=== PATIENT | female | born 1960 | race Caucasian/White ===

== ENCOUNTER → 2020-09-07 13:09 | Outpatient (CLI) | payer BC, SELFPAY ==
--- NOTE | 2020-09-07 13:12 | DI.MRI.S_ITS ---
PROCEDURE: MR LUMBAR SPINE WO CON INDICATIONS: PROGRESSIVE BACK PAIN TECHNIQUE: Noncontrast sagittal T1 spin echo and T2 fast echo, sagittal STIR, axial T1 and T2 fast spin echo through the lumbar spine. In cases with scoliosis, additional coronal T2 fast spin echo may be performed. COMPARISON: [facility], RG, XR L-SPINE 2-3V, 05/17/2020, 16:17. FINDINGS: Image quality: Excellent. Alignment and Curvature: Mild levoconvex scoliotic curvature is noted. There is minimal retrolisthesis seen at L2-L3 and L3-L4. Bone Marrow: Marrow is of normal overall signal. Scattered foci are seen, which are hyperintense on T1-weighted and T2-weighted imaging, which are most consistent with benign vertebral body hemangiomas. No acute vertebral body compression fractures. Spinal Cord: Conus medullaris terminates at the L1 level. Visualized cord demonstrates normal signal and size. Paraspinous Soft Tissues: No paravertebral masses. T12-L1: Mild loss of disc height is seen. Loss of disc signal is seen. Partially bridging endplate osteophytes are seen. No significant neural foraminal or central canal narrowing can be seen. L1-L2: The disc height is well-preserved. Loss of disc signal is seen at this level. No significant neural foraminal or central canal narrowing can be seen. L2-L3: [id number]-[id number] loss of disc height and disc signal can be seen on the right side. Mild generalized disc bulge is seen. No significant neural foraminal narrowing can be seen. Mild to moderate central canal narrowing is seen. L3-L4: Mild loss of disc height is seen. Loss of disc signal is seen. Reactive marrow endplate changes are seen, which demonstrate mixed T1 weighted and T2-weighted signal, and are attributed to a combination of edema and fatty metaplasia (Modic type I and Modic type II changes). Moderate disc bulge is seen, which is eccentric to the left. Moderate facet joint hypertrophy is seen. Fluid is seen within the facet joints themselves. There is mild left-sided and moderate right-sided neural foraminal narrowing seen. Moderate central canal narrowing is seen. L4-L5: The disc height is well-preserved. Loss of disc signal is seen at this level. Mild generalized disc bulge is seen. At least moderate facet hypertrophy is seen. Mild bilateral neural foraminal narrowing is seen. No significant central canal narrowing is seen. L5-S1: The disc height is well-preserved. Loss of disc signal is seen at this level. Mild generalized disc bulge is seen. Moderate facet joint hypertrophy is seen. There is mild left-sided and no significant right-sided neural foraminal narrowing seen. The central canal is widely patent. IMPRESSION: Levoconvex scoliotic curvature and multiple levels of degenerative change are seen. Dictated by: Brian Felder M.D. on 09/07/2020 at 14:00 Approved by: Brian Felder M.D. on 09/07/2020 at 14:04
== END ==
PROVIDERS: PCP Family Medicine; Referring Provider Physical Medicine & Rehabilitation; Visit Provider Physical Medicine & Rehabilitation
DX: M47.816 Spondylosis without myelopathy or radiculopathy, lumbar region (principal); M47.817 Spondylosis without myelopathy or radiculopathy, lumbosacral region; M41.20 Other idiopathic scoliosis, site unspecified
CPT/HCPCS: 72148

== ENCOUNTER → 2020-09-19 13:48 | Outpatient (CLI) | payer BC, SELFPAY ==
[2020-09-19 16:12] LABS: COVID19 -Nasal RAPID Negative (Negative)
== END ==
PROVIDERS: PCP Family Medicine; Visit Provider Physician Assistant
DX: Z01.812 Encounter for preprocedural laboratory examination (principal); Z20.822 Contact with and (suspected) exposure to COVID-19
CPT/HCPCS: 87635

== ENCOUNTER 2020-09-20 15:20 | Outpatient (CLI) | payer BC, SELFPAY ==
[2020-09-20] VITALS (10 sets, daily range): BP systolic 128–153; BP diastolic 64–98; PULSE 77–95; RESP 15–19; TEMP 35.9; O2SAT 95–100
--- NOTE | 2020-09-20 15:23 | DI.RAD.S_ITS ---
PROCEDURE: PAIN L/SI FACET INJ/BLK 1STL INDICATIONS: SPONDYLOSIS COMPARISON: None. FINDINGS: Fluoroscopic spot filming was performed to verify placement of spinal needles at the right L2-3, L3-4, L4-5 facet level(s), as labeled on the films. Appropriate location(s) of the needle tip(s) was confirmed by injection of iodinated contrast. IMPRESSION: Fluoroscopic guidance Dictated by: Kelvin Clayton M.D. on 09/20/2020 at 17:49 Approved by: Kelvin Clayton M.D. on 09/20/2020 at 17:49
[2020-09-20] MEDS: fentaNYL 100 MCG/2 ML INJ 50 MCG IV (16:09)
[2020-09-20] MEDS: MIDAZOLAM 5 MG/5 ML VIAL IV (16:09)
[2020-09-20] MEDS: IOPAMIDOL 15 ML VIAL 3 ML INJ (16:09)
[2020-09-20] MEDS: BETAMETHASONE 30 MG/5 ML MDV 12 MG INJ (16:10)
[2020-09-20] MEDS: LIDOCAINE 1% 20 ML 10 ML INJ (16:10)
[2020-09-20] MEDS: BUPIVACAINE 0.5% (PF) VIAL 5 ML INJ (16:10)
--- NOTE | 2020-09-20 16:22 | P.PCN_ITS ---
Date/Time/Diagnoses Date of procedure: 09/20/20 Time of procedure: 16:22 Pre-procedure diagnosis: 1. FACET ARTHROPATHY, 2. AXIAL LBP, 3. MULTILEVEL DDD Post-procedure diagnosis: same Procedure Notes Procedure: 1. FLUOROSCOPICALLY GUIDED CONTRAST CONTROLLED FACET JOINT INJECTIONS RIGHT L2/3, L3/4, L4/5 Indications: Mahnaz is referred by Dr. Herrera for treatment of Axial LBP Physician: Jordy Carson Total Fluoroscopy time (seconds): 9 Total sedation minutes: 13 Complications: none Procedure in detail & Post-procedure care: FINDINGS Multilevel Facet Arthropathy with Clinically significant axial LBP DESCRIPTION OF PROCEDURE Fluoroscopically guided, contrast-controlled right L2/3, L3/4, L4/5 facet joint injections. Following review of allergy and review of potential side effects and complications, including, but not necessarily limited to, infection, allergic reaction, local tissue breakdown, stroke, temporary or permanent nerve injury, paralysis, and possible , the patient indicated that the patient understood and agreed to proceed. An informed consent document was signed by the patient, witnessed by a nurse, and placed in the patient's chart. Additionally, other treatment options including medications, modalities, and physical therapy were reviewed with the patient. After review of previous anaesthesic history and IV conscious sedation the pat ient was deemed safe to proceed with today?s procedure with IV conscious sedation as ASA class II designation. Safety time-out was performed to confirm patient ID, procedure to be performed and site of procedure. IV sedation was accomplished with a combination of 3mg of Versed and 50mcg of Fentanyl administered by the RN after DO order, titrated to patient comfort during the course of the procedure while the patient remained responsive to all verbal commands. In the prone position, following sterile prep and drape of the lumbar region, the posterior aspect of the right L2/3, L3/4, L4/5 facet joints were identified fluoroscopically. The skin was anesthetized via a 25-gauge 1.5-inch needle with 1% lidocaine solution into the corresponding facet joints. At this point, a 22- gauge 3.5-inch spinal needle was atraumatically introduced and advanced under fluoroscopic guidance into the corresponding facet joints. Following negative aspiration, injections of approximately 0.2-cc of Isovue 200 confirmed interarticular placement without vascular uptake. Radiological data, including multiple fluoroscopic views of the lumbosacral spine, reveal a spinal needle at the right L2/3, L3/4, L4/5 facet joints. Subsequent views show flow of contrast material both superiorly and inferiorly within the joint space without vascular or intrathecal uptake. At this point, a total of 0.5cc including a mixture of 0.25cc Marcaine and 0.25cc betamethasone was injected without complication into each of the corresponding facet joints. The patient tolerated the procedure well without signs or symptoms of complications prior to transfer to the recovery area for further monitoring. The patient was then transferred to the recovery area where they were observed for an appropriate period of time after the injection. The patient reported a VAS score of 7 prior to the procedure and a post-procedure VAS of 0. POST OP INSTRUCTIONS The patient was provided a Pain Log to continue to record their response to the target-specific procedure prior to follow-up visit with their referring physician. Additionally, specific post-injection care instructions and a contact number to our office were provided if concerns arise regarding possible complications associated with the procedure are suspected.
== END 2020-09-20 16:47 | disposition home or self-care (01) ==
LOC: RAD 15:22
PROVIDERS: PCP Family Medicine; Referring Provider Physical Medicine & Rehabilitation; Visit Provider Physical Medicine & Rehabilitation
DX: M47.816 Spondylosis without myelopathy or radiculopathy, lumbar region (principal); M51.36 Other intervertebral disc degeneration, lumbar region; M54.5 Low back pain
CPT/HCPCS: 64493; 64494; 64495; 99152; J0702; J2250; J3010

== ENCOUNTER → 2020-11-15 08:26 | Outpatient (CLI) | payer BC, SELFPAY ==
[2020-11-15 12:37] LABS: COVID19 -Nasal RAPID Negative (Negative)
== END ==
PROVIDERS: PCP Family Medicine; Visit Provider Physical Medicine & Rehabilitation
DX: Z20.822 Contact with and (suspected) exposure to COVID-19 (principal)
CPT/HCPCS: 87635; C9803

== ENCOUNTER 2020-11-17 08:56 | Outpatient (CLI) | payer BC, SELFPAY ==
[2020-11-17] VITALS (9 sets, daily range): BP systolic 105–146; BP diastolic 66–86; PULSE 64–82; RESP 8–18; TEMP 36.3; O2SAT 93–100
--- NOTE | 2020-11-17 08:57 | DI.RAD.S_ITS ---
PROCEDURE: PAIN L/SI FACET INJ/BLK 1STL INDICATIONS: Right L2, L3, L4 and L5 MBB COMPARISON: [facility], MR, MR LUMBAR SPINE WO CON, 09/07/2020, 13:51. [facility], RG, XR L-SPINE 2-3V, 05/17/2020, 16:17. FINDINGS: Fluoroscopic spot filming was performed to verify placement of spinal needles at the L2, L3, L4 and L5 level(s), as labeled on the films. Appropriate location(s) of the needle tip(s) was confirmed by injection of iodinated contrast. IMPRESSION: Fluoroscopy for pain management. Dictated by: Nathen Miller M.D. on 11/17/2020 at 9:59 Approved by: Nathen Miller M.D. on 11/17/2020 at 9:59
[2020-11-17] MEDS: fentaNYL 100 MCG/2 ML INJ 50 MCG IV (09:30)
[2020-11-17] MEDS: MIDAZOLAM 5 MG/5 ML VIAL IV (09:36)
[2020-11-17] MEDS: IOPAMIDOL 15 ML VIAL 3 ML INJ (09:37)
[2020-11-17] MEDS: LIDOCAINE 1% 20 ML 10 ML INJ (09:37)
[2020-11-17] MEDS: BUPIVACAINE 0.5% (PF) VIAL 5 ML INJ (09:37)
--- NOTE | 2020-11-17 09:48 | P.PCN_ITS ---
Date/Time/Diagnoses Date of procedure: 11/17/20 Time of procedure: 09:48 Pre-procedure diagnosis: 1. FACET ARTHROPATHY Post-procedure diagnosis: same Procedure Notes Procedure: 1. Right L2, L3, L4 and L5 MB BLOCKS Indications: Mahnaz is referred by Dr. Herrera for treatment of Right Axial LBP. Physician: Jordy Carson Total Fluoroscopy time (seconds): 7 Total sedation minutes: 14 Complications: none Procedure in detail & Post-procedure care: DESCRIPTION OF PROCEDURE Fluoroscopically guided, contrast-controlled right L2, L3, L4 and L5 medial branch blocks with 0.5cc of 0.5% Marcaine. Following review of allergy and review of potential side effects and complications, including, but not necessarily limited to, infection, allergic reaction, local tissue breakdown, nerve injury, paralysis, stroke and possible , the patient indicated that the patient understood and agreed to proceed. An informed consent document was signed by the patient, witnessed by a nurse, and placed in the patient's chart. After review of previous anaesthesic history and IV conscious sedation the patient was deemed safe to proceed with today?s procedure with IV conscious sedation as ASA class II designation. Safety time-out was performed to confirm patient ID, procedure to be performed and site of procedure. IV sedation was accomplished with a combination of 4mg of Versed and 50mcg of Fentanyl was administered by the RN after DO order, titrated to patient comfort during the course of the procedure while the patient remained responsive to all verbal commands In the prone position, following sterile prep and drape of the lumbar region, the right L2, L3, L4 and L5 anatomical location of the medial branch of the dorsal ramus was identified fluoroscopically. Subsequently an anesthetic skin wheal using 1% lidocaine solution was initiated at each of the anatomical spots. Subsequently then a 22-gauge 3.5-inch spinal needle was atraumatically introduced and advanced under fluoroscopic guidance at each of the corresponding sites at the right L2, L3, L4 and L5 MB. After negative aspiration, 0.2 cc of Isovue 200 was injected, confirming placement without vascular or intrathecal uptake. Subsequently then 0.5cc of 0.5% Marcaine solution was injected at each of the corresponding sites at the right L2, L3, L4 and L5 medial branch locations. The patient tolerated the procedure well without signs or symptoms of complications. The procedure tolerated the procedure well without signs or symptoms of complications prior to transfer to the recovery area continued monitoring without incident. Post-procedure, the patient was monitored initiating provocative activities to measure the amount of relief from block of the facetogenic pain. The patient reported a VAS of 7 prior to the procedure and a post-procedure VAS of 1. It has been a pleasure to assist in the diagnostic and therapeutic care of your patient. POST OP INSTRUCTIONS The patient was provided with a Pain Log to complete over the next several hours and subsequent days prior to the patient's follow up with the ordering physician. If the patient has printed circuit board preassembler relief to the solution applied, then they may be a candidate for medial branch rhizotomy. The patient is aware, was provided, once again, with a Pain Log and will follow up with the referring physician for review and clinical correlation.
== END 2020-11-17 10:10 | disposition home or self-care (01) ==
LOC: RAD 08:57
PROVIDERS: PCP Family Medicine; Referring Provider Physical Medicine & Rehabilitation; Visit Provider Physical Medicine & Rehabilitation
DX: M47.816 Spondylosis without myelopathy or radiculopathy, lumbar region (principal); M54.5 Low back pain
CPT/HCPCS: 64493; 64494; 64495; 72020; 99151; 99152; J2250; J3010

== ENCOUNTER → 2021-01-10 12:37 | Outpatient (CLI) | payer BC, SELFPAY ==
[2021-01-10 15:19] LABS: COVID19 -Nasal RAPID Negative (Negative)
== END ==
PROVIDERS: PCP Family Medicine; Visit Provider Physical Medicine & Rehabilitation
DX: Z20.822 Contact with and (suspected) exposure to COVID-19 (principal)
CPT/HCPCS: 87635; C9803

== ENCOUNTER 2021-01-12 09:25 | Outpatient (CLI) | payer BC, SELFPAY ==
[2021-01-12] VITALS (8 sets, daily range): BP systolic 111–151; BP diastolic 63–100; PULSE 62–79; RESP 10–18; TEMP 36.9; O2SAT 96–100
--- NOTE | 2021-01-12 10:42 | DI.RAD.S_ITS ---
PROCEDURE: PAIN L INTERLAMINAR/CAUDAL INJ INDICATIONS: SPONDYLOSIS COMPARISON: [facility], XA, PAIN L/SI FACET INJ/BLK 1STL, 09/20/2020, 16:09. [facility], XA, PAIN L/SI FACET INJ/BLK 1STL, 11/17/2020, 9:37. FINDINGS: Fluoroscopic spot filming was performed to verify placement of a spinal needle at the L3-L4 level, as labeled on the films. Appropriate location of the needle tip was confirmed by injection of iodinated contrast. IMPRESSION: Intraprocedural examination within normal limits. Dictated by: Brian Felder M.D. on 01/12/2021 at 12:33 Approved by: Brian Felder M.D. on 01/12/2021 at 12:33
[2021-01-12] MEDS: fentaNYL 100 MCG/2 ML INJ 50 MCG IV (11:25)
[2021-01-12] MEDS: MIDAZOLAM 5 MG/5 ML VIAL IV (11:25)
[2021-01-12] MEDS: DEXAMETHASONE 10 MG/ML VIAL 20 MG INJ (11:31)
[2021-01-12] MEDS: IOPAMIDOL 15 ML VIAL 3 ML INJ (11:32)
[2021-01-12] MEDS: BUPIVACAINE 0.25% (PF) VIAL 2 ML INJ (11:32)
[2021-01-12] MEDS: BETAMETHASONE 30 MG/5 ML MDV 12 MG INJ (11:32)
--- NOTE | 2021-01-12 11:39 | P.PCN_ITS ---
Date/Time/Diagnoses Date of procedure: 01/12/21 Time of procedure: 11:39 Pre-procedure diagnosis: 1. HNP WITH RADICULAR FEATURES, 2. MULTILEVEL CENTRAL STENOSIS, Post-procedure diagnosis: same Procedure Notes Procedure: 1. FLUOROSCOPICALLY GUIDED CONTRAST CONTROLLED INTERLAMINAR EPIDURAL STEROID INJECTION - L3/4 Indications: Mahnaz is referred by Dr. Herrera for treatment of Bilateral Foraminal Stenosis L>R LE symptoms. Physician: Jordy Carson Total Fluoroscopy time (seconds): 10 Total sedation minutes: 10 Complications: none Procedure in detail & Post-procedure care: FINDINGS Multilevel Central Spinal Stenosis with Nerve Root Compression DESCRIPTION OF PROCEDURE Fluoroscopically guided, contrast-controlled L3/4 translaminar epidural steroid injection. Following review of allergy and review of potential side effects and complications, including, but not necessarily limited to, infection, allergic reaction, local tissue breakdown, temporary as well as permanent nerve injury, paralysis, stroke and possible , the patient indicated that the patient understood and agreed to proceed. An informed consent document was signed by the patient, witnessed by a nurse, and placed in the patient's chart. Additionally, other treatment options including modalities, medications, and physical therapy were reviewed with the patient. After review of previous anaesthesic history and IV conscious sedation the patient was deemed safe to proceed with today?s procedure with IV conscious sedation as ASA class II designation. Safety time-out was performed to confirm p atient ID, procedure to be performed and site of procedure. IV sedation was accomplished with a combination of 4mg of Versed and 50mcg of Fentanyl was administered by the RN after DO order, titrated to patient comfort during the course of the procedure while the patient remained responsive to all verbal commands. In the prone position, following sterile prep and drape of the lumbar region, the L3/4 translaminar space was identified fluoroscopically. The skin was anesthetized via a 25-gauge, 1.5-inch needle with 1% lidocaine solution. At this point, a 22-gauge short bevel spinal needle was atraumatically introduced and advanced under fluoroscopic guidance into the region of the L3/4 translaminar space. Depth was confirmed on lateral view. Radiological data, including multiple fluoroscopic views of the lumbar spine, reveal a spinal needle at the L3/4 translaminar space. Lateral views then show placement of the needle in the epidural space. Subsequent views show contrast material flowing superiorly and inferiorly in the epidural space. No vascular or intrathecal uptake is observed. At this point, using loss of resistance technique with saline and air, the epidural space was entered. This was confirmed following negative aspiration with injection of approximately 1.5 cc of Isovue 200, showing excellent epidural flow without vascular or intrathecal uptake. At this point, 1cc of 1% lidocaine solution combined with 3cc or 20mg of dexamethasone and 12mg of betamethasone was injected without incident. The patient tolerated the procedure well without signs or symptoms of complications prior to transfer to the recovery area continued monitoring without incident. The patient was then transferred to the recovery area where they were observed for an appropriate period of time after the injection. The patient reported a VAS score of 6 prior to the procedure and a post- procedure VAS of 0. POST OP INSTRUCTIONS The patient was provided a Pain Log to continue to record their response to the target-specific procedure prior to follow-up visit with their referring physician. Additionally, specific post-injection care instructions and a contact number to our office were provided if concerns arise regarding possible complications associated with the procedure are suspected.
== END 2021-01-12 12:00 | disposition home or self-care (01) ==
LOC: RAD 09:27
PROVIDERS: PCP Family Medicine; Referring Provider Physical Medicine & Rehabilitation; Visit Provider Physical Medicine & Rehabilitation
DX: M51.16 Intervertebral disc disorders with radiculopathy, lumbar region (principal); M48.061 Spinal stenosis, lumbar region without neurogenic claudication
CPT/HCPCS: 62323; 99152; J0702; J1100; J2250; J3010

== ENCOUNTER → 2021-02-07 14:23 | Outpatient (CLI) | payer BC, SELFPAY ==
[2021-02-07 14:52] LABS: COVID19 -Nasal RAPID Negative (Negative)
== END ==
PROVIDERS: PCP Family Medicine; Referring Provider Physical Medicine & Rehabilitation; Visit Provider Physical Medicine & Rehabilitation
DX: Z20.822 Contact with and (suspected) exposure to COVID-19 (principal)
CPT/HCPCS: 87635; C9803

== ENCOUNTER 2021-02-09 10:20 | Outpatient (CLI) | payer BC, SELFPAY ==
[2021-02-09] VITALS (9 sets, daily range): BP systolic 117–150; BP diastolic 62–85; PULSE 71–77; RESP 14–19; TEMP 36.6; O2SAT 96–99
--- NOTE | 2021-02-09 10:21 | DI.RAD.S_ITS ---
PROCEDURE: PAIN L/S MED/LAT N RFA INDICATIONS: SPONDYLOSIS COMPARISON: [facility], XA, PAIN L INTERLAMINAR/CAUDAL INJ, 01/12/2021, 11:29. FINDINGS: Fluoroscopic spot filming was performed to verify placement of spinal needles on the right at the L2, L3, L4, and L5, as labeled on the films. IMPRESSION: Intraprocedural examination within normal limits. Dictated by: Brian Felder M.D. on 02/09/2021 at 11:58 Approved by: Brian Felder M.D. on 02/09/2021 at 11:58
[2021-02-09] MEDS: fentaNYL 100 MCG/2 ML INJ 50 MCG IV (11:50)
[2021-02-09] MEDS: MIDAZOLAM 5 MG/5 ML VIAL IV (11:50)
[2021-02-09] MEDS: BUPIVACAINE 0.5% (PF) VIAL 5 ML INJ (11:54)
[2021-02-09] MEDS: LIDOCAINE 1% 20 ML 10 ML INJ (11:55)
--- NOTE | 2021-02-09 12:20 | P.PCN_ITS ---
Date/Time/Diagnoses Date of procedure: 02/09/21 Time of procedure: 12:20 Pre-procedure diagnosis: 1. RECALCITRANT FACET ARTHROPATHY Post-procedure diagnosis: same Procedure Notes Procedure: 1. RIGHT L2, L3, L4 AND L5 MEDIAL BRANCH RADIOFREQUENCY NEUROTOMY Indications: Mahnaz is referred by Dr. Herrera for treatment of facet arthropathy. Physician: Jordy Carson Total Fluoroscopy time (seconds): 21 Total sedation minutes: 29 Complications: none Procedure in detail & Post-procedure care: DESCRIPTION OF PROCEDURE Right L2, L3, L4 and L5 medial branch radiofrequency neurotomy The patient is well known to this clinic having undergone previous facet injections with good but temporary relief. The patient has experienced appropriate, concordant relief with previous facet and median branch blocks but the patient's pain has been recalcitrant to further conservative measures. Therefore, based upon the patient's relief and persistent symptoms, the patient is considered an appropriate candidate for facet rhizotomy. All of the patient's questions regarding the risks versus benefits of the procedure, including, but not limited to, bleeding, infection, temporary as well as lasting nerve injury, paralysis, stroke, and , as well treatment alternatives were answered to satisfaction. After obtaining informed consent, denial of pertinent drug allergies, as well as being made aware of the potential risks of bleeding, infection, spinal cord trauma, paralysis, temporary and permanent nerve damage, seizure, stroke, and possible , the patient was brought to the fluoroscopy suite and positioned prone on the fluoroscopy table. The lumbar region was prepped with chlorhexadine and covered with a fenestrated drape in the usual sterile fashion. Appropriate monitors applied including pulse oximeter, pulse, and blood pressure for regular monitoring throughout the procedure. After review of previous anaesthesic history and IV conscious sedation the patient was deemed safe to proceed with today's procedure with IV conscious sedation as ASA class II designation. Safety time-out was performed to confirm patient ID, procedure to be performed and site of procedure. IV sedation was accomplished with a combination of 4mg of Versed and 100mcg of Fentanyl administered by the RN after DO order, titrated to patient comfort during the course of the procedure while the patient remained responsive to all verbal commands. After local infiltration using 1% lidocaine, under fluoroscopic guidance, a 10- cm RF insulated needle with a 10-mm active tip was positioned parallel to the junction of the right the superior articulating process where the L5 medial branch resides. Needle placement was confirmed with motor stimulation of .5v on the right which produced local stimulation without radicular component. The stimulation was then increased to 2v with, once again, only local multifidus stimulation without radicular component. The needle was then removed and the identical procedure was performed along the length of the right L4 medial branch with motor stimulation at .7v on the right. The identical procedure was once again performed along the length of the right L3 and medial branch with motor stimulation of .5v on the right. The identical procedure was once again performed along the length of the right L2 and medial branch with motor stimulation of .5v on the right. The medial branches were then anesthetised with 0.5% marcaine. This was then followed by two discreet lesions performed at 80 degrees Celsius for 90 seconds each. The patient tolerated the procedure well without signs or symptoms of complications prior to transfer to the recovery area continued monitoring without incident. The patient was then transferred to the recovery area where they were observed for an appropriate period of time after the injection. The patient reported a VAS score of 7 prior to the procedure and a post-procedure VAS of 0. POST OP INSTRUCTIONS The patient was provided a Pain Log to continue to record the patient's response to the target-specific procedure prior to the patient's follow-up visit with the referring physician. Additionally, specific post-injection care instructions and a contact number to our office were provided if concerns arise regarding possible complications associated with the procedure are suspected.
== END 2021-02-09 12:30 | disposition home or self-care (01) ==
LOC: RAD 10:21
PROVIDERS: PCP Family Medicine; Referring Provider Physical Medicine & Rehabilitation; Visit Provider Physical Medicine & Rehabilitation
DX: M47.816 Spondylosis without myelopathy or radiculopathy, lumbar region (principal)
CPT/HCPCS: 64635; 64636; 99152; 99153; J2250; J3010

== ENCOUNTER → 2021-05-23 11:30 | Outpatient (CLI) | payer BC, SELFPAY ==
[2021-05-23 13:44] LABS: COVID19 -Nasal RAPID Negative (Negative)
== END ==
PROVIDERS: PCP Family Medicine; Visit Provider Physical Medicine & Rehabilitation
DX: Z20.822 Contact with and (suspected) exposure to COVID-19 (principal)
CPT/HCPCS: 87635; C9803

== ENCOUNTER 2021-05-25 10:00 | Outpatient (CLI) | payer BC, SELFPAY ==
[2021-05-25] VITALS (9 sets, daily range): BP systolic 144–168; BP diastolic 74–89; PULSE 66–84; RESP 12–20; TEMP 36.2; O2SAT 98–100
--- NOTE | 2021-05-25 10:01 | DI.RAD.S_ITS ---
PROCEDURE: PAIN SI JOINT INJECTION INDICATIONS: SACROILIAC DISORDER COMPARISON: [facility], XA, PAIN L/S MED/LAT N RFA, 02/09/2021, 12:51. [facility], XA, PAIN L INTERLAMINAR/CAUDAL INJ, 01/12/2021, 11:29. [facility], XA, PAIN L/SI FACET INJ/BLK 1STL, 11/17/2020, 9:37. [facility], XA, PAIN L/SI FACET INJ/BLK 1STL, 09/20/2020, 16:09. FINDINGS: On these intraprocedural images, there is a spinal needle seen overlying the inferior aspect of the right sacroiliac joint. Appropriate position of the tip of the needle was confirmed by injection of a small amount of iodinated contrast. IMPRESSION: Successful sacroiliac joint injection. Dictated by: Brian Felder M.D. on 05/25/2021 at 11:38 Approved by: Brian Felder M.D. on 05/25/2021 at 11:38
[2021-05-25] MEDS: MIDAZOLAM 5 MG/5 ML VIAL IV (10:55)
[2021-05-25] MEDS: fentaNYL 250 MCG/5 ML INJ 50 MCG IV (10:55)
[2021-05-25] MEDS: BUPIVACAINE 0.5% (PF) VIAL 2 ML INJ (10:59)
[2021-05-25] MEDS: BETAMETHASONE 30 MG/5 ML MDV 12 MG INJ (11:00)
[2021-05-25] MEDS: IOPAMIDOL 15 ML VIAL 3 ML INJ (11:00)
--- NOTE | 2021-05-25 11:11 | P.PCN_ITS ---
Date/Time/Diagnoses Date of procedure: 05/25/21 Time of procedure: 11:11 Pre-procedure diagnosis: Sacroiliac Joint Pain/DJD Post-procedure diagnosis: same Procedure Notes Procedure: Fluoroscopically guided contrast controlled left sacroiliac joint injection Indications: Mahnaz is referred by Dr. Herrera for treatment of left sacroiliac joint DJD Physician: Jordy Carson Total Fluoroscopy time (seconds): 9 Total sedation minutes: 11 Complications: none Procedure in detail & Post-procedure care: DESCRIPTION OF PROCEDURE Fluoroscopic guided, contrast controlled left sacroiliac joint injection Following review of allergies and review of potential side effects and complications, including, but not necessarily limited to, infection, allergic reaction, local tissue breakdown, temporary as well as permanent nerve injury, paralysis, stroke and possible , the patient indicated that they understood and agreed to proceed. An informed consent was signed by the patient, witnessed by a nurse, and placed in the patient's chart. Additionally, other treatment options including modalities, medications, and physical therapy were reviewed with the patient. After review of previous anaesthesic history and IV conscious sedation the patient was deemed safe to proceed with today?s procedure with IV conscious sedation as ASA class II designation. Safety time-out was performed to confirm patient ID, procedure to be performed and site of procedure. IV sedation was accomplished with a combination of 2mg of Versed and 50mcg of Fentanyl administered by the RN after DO order, titrated to patient comfort during the course of the procedure while the patient remained responsive to all verbal commands. In the prone position following sterile prep and drape of the pelvic region, the hyper lucency on in the inferior aspect of the left sacroiliac joint was identified fluoroscopically the skin was anesthetized be a 25 gauge 1 eventual with approximately 2cc of 1% lidocaine solution. At this point, a 22 gauge 3inch spinal needle was atraumatically introduced and advanced under fluoroscopic guidance into the inferior aspect of the left sacroiliac joint. Following negative aspiration, approximately 0.3cc of Isovue-300 was injected confirming intra-articular placement without vascular uptake. Radiographic data, including multiple fluoroscopic views of the pelvis, reveals a spinal needle in the left sacroiliac joint hyper lucent zone. Subsequent view show flow contrast tear superiorly and inferiorly within the joint capsule without vascular intrathecal uptake. At this point a total of 1cc or 0.5% Marcaine was combined with 1cc of 6mg of betamethasone was injected without incident. The patient tolerated the procedure well without signs or symptoms of complications prior to transfer to the recovery area for further monitoring. The patient was then transferred to the recovery area with a bur observed for an appropriate time after the injection. The patient reverted a vas score of 7 pr ior to the procedure and postprocedure vas of 1. POSTOP INSTRUCTIONS The patient was provided with a pain like to continue to record the patient's response to the target specific procedure prior to the patient's follow-up visit with the referring physician. Additionally, specific post injection care instructions and a contact number to our office were provided if concerns arise regarding the possible complications associated with procedure are suspected.
== END 2021-05-25 11:30 | disposition home or self-care (01) ==
LOC: RAD 10:01
PROVIDERS: PCP Family Medicine; Referring Provider Physical Medicine & Rehabilitation; Visit Provider Physical Medicine & Rehabilitation
DX: M53.3 Sacrococcygeal disorders, not elsewhere classified (principal); M46.1 Sacroiliitis, not elsewhere classified
CPT/HCPCS: 27096; 99152; J0702; J2250; J3010

== ENCOUNTER → 2021-07-12 10:05 | Outpatient (CLI) | payer BC, SELFPAY ==
--- NOTE | 2021-07-12 10:06 | DI.RAD.S_ITS ---
PROCEDURE: XR LUMBAR SPINE MIN 4V INDICATIONS: BACK PAIN TECHNIQUE: 5 views of the lumbar spine were acquired, including bilateral oblique views. COMPARISON: [facility], RG, XR L-SPINE 2-3V, 05/17/2020, 16:17. FINDINGS: Bones: 5 nonrib-bearing vertebrae are present. Levocurvature lumbar spine. Endplate osteophytosis. Facet arthrosis, most prominent at L5-S1. Minimal retrolisthesis at L2 - 4, measuring up to 4 mm. No vertebral body compression fractures. No suspicious bony lesions. Soft tissues: Overlying bowel gas pattern is normal. No suspicious soft tissue calcifications. Oblique images: No pars defects. IMPRESSION: Lumbar spine degeneration as detailed above. Dictated by: Toro Upton M.D. on 07/12/2021 at 13:24 Approved by: Toro Upton M.D. on 07/12/2021 at 13:35
== END ==
PROVIDERS: PCP Family Medicine; Referring Provider Physical Medicine & Rehabilitation; Visit Provider Physical Medicine & Rehabilitation
DX: M51.16 Intervertebral disc disorders with radiculopathy, lumbar region (principal); M47.27 Other spondylosis with radiculopathy, lumbosacral region; M47.26 Other spondylosis with radiculopathy, lumbar region; M41.26 Other idiopathic scoliosis, lumbar region
CPT/HCPCS: 72110

== ENCOUNTER → 2021-07-14 09:57 | Outpatient (CLI) | payer BC, SELFPAY ==
--- NOTE | 2021-07-14 | DI.MG.S_ITS ---
BILATERAL DIGITAL DIAGNOSTIC MAMMOGRAM 3D/2D: 07/14/2021 CLINICAL: Short term follow up for the left breast. Comparison is made to exams dated: 06/29/2020 ultrasound, 06/29/2020 mammogram, 06/08/2020 mammogram, and 02/10/2018 mammogram - [facility]. The tissue of both breasts is predominantly fatty. There is a mass in the left breast seen on the craniocaudal view only. The benign 0.5 cm x 0.3 cm oval equal density focal asymmetry with a circumscribed margin in the left breast central to the nipple middle depth 10 cm from the nipple is no longer seen. No other significant masses, calcifications, or other findings are seen in either breast. IMPRESSION: BENIGN There is no mammographic evidence of malignancy. Return to annual mammogram screening schedule is recommended. This exam was interpreted at Station ID: [id number]. NOTE: For mammograms, a report in lay terms will be sent to the patient. Approximately 15% of breast malignancies will not be visualized mammographically. In the management of a palpable breast mass, a negative mammogram must not discourage biopsy of a clinically suspicious lesion. Electronically Signed By: Usama Comer acr/:07/14/2021 10:37:49 letter sent: Normal Exam ACR BI-RADS Category 2: Benign Finding(s) 3342F
== END ==
PROVIDERS: PCP Family Medicine; Referring Provider Family Medicine; Visit Provider Family Medicine
DX: R92.8 Other abnormal and inconclusive findings on diagnostic imaging of breast (principal)
CPT/HCPCS: 77066; G0279

== ENCOUNTER → 2022-07-13 13:05 | Outpatient (CLI) | payer BC, SELFPAY ==
--- NOTE | 2022-07-13 13:07 | DI.RAD.S_ITS ---
PROCEDURE: XR LUMBAR SPINE MIN 4V INDICATIONS: LUMBAR RADICULOPATHY TECHNIQUE: 5 views of the lumbar spine were acquired, including bilateral oblique views. COMPARISON: [facility], CR, XR LUMBAR SPINE MIN 4V, 07/12/2021, 9:57. FINDINGS: Bones: 5 nonrib-bearing vertebrae are present. Again noted is mild levoscoliosis of lumbar spine with apex at L3 level unchanged from prior study. Degenerative endplate changes and loss of disc height throughout lumbar spine is again seen more notably at L2-3, L3-4 and L4-5 levels not significantly changed from prior study. Previously described 3 mm retrolisthesis of L2 on L3 and 4 mm retrolisthesis of L3 on L4 are unchanged. No vertebral body compression fractures. No suspicious bony lesions. Soft tissues: Overlying bowel gas pattern is normal. No suspicious soft tissue calcifications. Oblique images: No pars defects. Bilateral bony foraminal stenosis at L3-4 and L4-5 levels are also seen. IMPRESSION: Degenerative disc disease throughout lumbar spine not significantly changed from prior study. No acute compression fracture. Stable grade 1 retrolisthesis at L2-3 and L3-4 levels. No pars defects. Bilateral bony foraminal stenosis at L3-4 and L4-5 levels are seen on oblique views. Dictated by: Wicho Donald M.D. on 07/13/2022 at 13:26 Approved by: Wicho Donald M.D. on 07/13/2022 at 13:28
== END ==
PROVIDERS: PCP Family Medicine; Referring Provider Physical Medicine & Rehabilitation; Visit Provider Physical Medicine & Rehabilitation
DX: M47.26 Other spondylosis with radiculopathy, lumbar region (principal); M51.16 Intervertebral disc disorders with radiculopathy, lumbar region; M53.3 Sacrococcygeal disorders, not elsewhere classified
CPT/HCPCS: 72110

== ENCOUNTER → 2022-07-17 14:48 | Outpatient (CLI) | payer BC, SELFPAY ==
--- NOTE | 2022-07-17 14:52 | DI.RAD.S_ITS ---
PROCEDURE: XR HIP W PEL IF DONE OSIRIS MIN 4V INDICATIONS: postrerior iliac pain TECHNIQUE: AP pelvis with lateral view(s) of the bilateral hip(s). COMPARISON: None. FINDINGS: Bones: No fractures or dislocations. Pelvic ring appears intact. No suspicious bony lesions. Mild bilateral hip joint space narrowing and small marginal osteophyte of the right Soft tissues: The visualized bowel gas pattern is normal. No suspicious soft tissue calcifications. Surgical clips noted over the right inguinal canal IMPRESSION: Mild bilateral hip joint space narrowing Approved by: Kelvin Clayton M.D. on 07/17/2022 at 18:03
== END ==
PROVIDERS: PCP Family Medicine; Referring Provider Physical Medicine & Rehabilitation; Visit Provider Physical Medicine & Rehabilitation
DX: M53.3 Sacrococcygeal disorders, not elsewhere classified (principal)
CPT/HCPCS: 73522

== ENCOUNTER → 2022-09-24 09:51 | Outpatient (CLI) | payer BC, SELFPAY ==
[2022-09-24 11:21] LABS: Alanine Aminotransferase 21 IU/L (<35); Albumin 4.1 g/dL (3.5-5.0); Albumin Globulin Ratio 1.5 (1.0-2.8); Alkaline Phosphatase 83 U/L (38-126); Aspartate Aminotransferase 26 IU/L (14-36); BUN Creatinine Ratio 19.6 (6-22); Bilirubin Total 1.3 mg/dL (0.2-1.3); Blood Urea Nitrogen 18 mg/dL (7-17); Calcium 8.8 mg/dL (8.4-10.2); Carbon Dioxide 27 mmol/L (22-32); Chloride 105 mmol/L (98-107); Cholesterol 226 mg/dL (140-199); Estimated Glomerular Filt Rate > 60 mL/min (>60); Globulin 2.8 g/dL (1.7-4.1); Glucose 95 mg/dL (80-110); HDL Cholesterol 68 mg/dL (40-60); HEMOLYSIS < 15 (0-50); LDL Cholesterol Calculated 144 mg/dL (<100); Potassium 4.5 mmol/L (3.4-5.1); Sodium 139 mmol/L (137-145); Total Protein 6.9 g/dL (6.3-8.2); Triglycerides 71 mg/dL (35-150)
[2022-09-25 07:10] LABS: Labcorp Hemoglobin (Hb) A1c 5.5 % (4.8-5.6)
== END ==
PROVIDERS: PCP Family Medicine; Referring Provider Family Medicine; Visit Provider Family Medicine
DX: E66.9 Obesity, unspecified (principal); I10 Essential (primary) hypertension; R73.01 Impaired fasting glucose
CPT/HCPCS: 36415; 80053; 80061; 83036

== ENCOUNTER → 2023-05-20 08:19 | Outpatient (CLI) | payer BC, SELFPAY ==
--- NOTE | 2023-05-20 08:20 | DI.MG.S_ITS ---
BILATERAL DIGITAL SCREENING MAMMOGRAM 3D/2D WITH CAD: 05/20/2023 CLINICAL: Routine screening. Family history of breast cancer. Comparison is made to exams dated: 07/14/2021 mammogram - [facility], 06/29/2020 mammogram, 06/08/2020 mammogram, and 02/10/2018 mammogram - [facility]. Both breasts are almost entirely fatty (category a/<25% glandular tissue). Current study was also evaluated with a Computer Aided Detection (CAD) system. There is possible developing irregular architectural distortion in the right breast at 10 o'clock middle depth. This is more prominent. No other significant masses, calcifications, or other findings are seen in either breast. IMPRESSION: INCOMPLETE: NEEDS ADDITIONAL IMAGING EVALUATION The possible developing irregular architectural distortion in the right breast is indeterminate. Additional views with possible ultrasound are recommended. Based on the Tyrer Cuzick model (a risk assessment model) the patient's lifetime risk is 12.1% and her 10 year risk is 5.9%. According to the ACR, ACS, and NCCN guidelines, an annual breast MRI exam along with mammogram is recommended if the patient's lifetime risk is 20% or greater. This exam was interpreted at Station ID: [id number]. NOTE: For mammograms, a report in lay terms will be sent to the patient. Approximately 15% of breast malignancies will not be visualized mammographically. In the management of a palpable breast mass, a negative mammogram must not discourage biopsy of a clinically suspicious lesion. Electronically Signed By: Oksana silvestre/lucius:05/20/2023 16:49:05 letter sent: Additional Imaging Needed ACR BI-RADS Category 0: Incomplete 3340F
== END ==
LOC: MAMMO 08:19
PROVIDERS: PCP Family Medicine; Referring Provider Family Medicine; Visit Provider Family Medicine
DX: Z12.31 Encounter for screening mammogram for malignant neoplasm of breast (principal); Z80.3 Family history of malignant neoplasm of breast; I10 Essential (primary) hypertension; R73.01 Impaired fasting glucose; E66.9 Obesity, unspecified
CPT/HCPCS: 77063; 77067

== ENCOUNTER → 2023-06-10 10:11 | Outpatient (CLI) | payer BC, SELFPAY ==
--- NOTE | 2023-06-10 | DI.MG.S_ITS ---
UNILATERAL RIGHT DIGITAL DIAGNOSTIC MAMMOGRAM 3D/2D WITH ADDITIONAL VIEWS: 06/10/2023 CLINICAL: Additional evaluation requested from prior study. Comparison is made to exams dated: 05/20/2023 mammogram, 07/14/2021 mammogram - [facility], and 06/08/2020 mammogram - [facility]. There are scattered areas of fibroglandular density in the right breast (category b / 25%-50% glandular tissue). The possible developing architectural distortion in the right breast at 10 o'clock middle depth seen only on the screening mammogram is not seen in additional views. No other significant masses or calcifications are seen in the breast. IMPRESSION: BENIGN The possible developing architectural distortion in the right breast seen on the screening mammogram likely respresents superimposed fibroglandular tissue and is benign. There is no mammographic evidence of malignancy. Return to annual mammogram screening schedule is recommended. Based on the Tyrer Cuzick model (a risk assessment model) the patient's lifetime risk is 17.9% and her 10 year risk is 8.9%. According to the ACR, ACS, and NCCN guidelines, an annual breast MRI exam along with mammogram is recommended if the patient's lifetime risk is 20% or greater. This exam was interpreted at Station ID: [id number]. NOTE: For mammograms, a report in lay terms will be sent to the patient. Approximately 15% of breast malignancies will not be visualized mammographically. In the management of a palpable breast mass, a negative mammogram must not discourage biopsy of a clinically suspicious lesion. Electronically Signed By: Gladys wang/:06/10/2023 10:45:47 letter sent: Normal Exam ACR BI-RADS Category 2: Benign Finding(s) 3342F
== END ==
PROVIDERS: PCP Family Medicine; Referring Provider Family Medicine; Visit Provider Family Medicine
DX: R92.8 Other abnormal and inconclusive findings on diagnostic imaging of breast (principal); R92.321 Mammographic fibroglandular density, right breast
CPT/HCPCS: 77065; G0279

== ENCOUNTER → 2023-09-27 19:46 | Outpatient (CLI) | payer BC, SELFPAY ==
--- NOTE | 2023-09-27 19:47 | DI.MRI.S_ITS ---
PROCEDURE: MR PELVIS WO CON INDICATIONS: SACROCOCCYGEAL DISORDERS TECHNIQUE: Noncontrast coronal and axial T1 spin echo and STIR through the bony pelvis. COMPARISON: None. FINDINGS: Image quality: Excellent. Bones: Evaluation of the sacrum and coccyx shows no acute fracture or dislocation. No marrow edema. No suspicious intraosseous lesions. Bilateral sacroiliac joint osteoarthritic changes are seen without marrow edema to suggest active sacroiliitis. No ankylosis. Soft tissues: Visualized muscles demonstrate normal bulk and internal signal. No joint effusions. No free pelvic fluid. No presacral mass or fluid collection. IMPRESSION: 1. Mild bilateral sacroiliac joint osteoarthritis. No ankylosis or marrow edema to suggest active sacroiliitis. No acute sacral or coccygeal fracture. No suspicious bony lesions. 2. No gross pelvic soft tissue abnormalities. Dictated by: Wicho Donald M.D. on 10/01/2023 at 10:32 Approved by: Wicho Donald M.D. on 10/01/2023 at 10:35
== END ==
PROVIDERS: PCP Family Medicine; Referring Provider Orthopaedic Surgery Orthopaedic Surgery of the Spine; Visit Provider Orthopaedic Surgery Orthopaedic Surgery of the Spine
DX: M53.3 Sacrococcygeal disorders, not elsewhere classified (principal)
CPT/HCPCS: 72148; 72195

== ENCOUNTER → 2023-10-30 15:01 | Outpatient (CLI) | payer BC, SELFPAY ==
[2023-10-30 15:39] LABS: Hemoglobin A1C% w Est Avg Glu 5.3 % (4.0-6.0)
[2023-10-30 15:58] LABS: Alanine Aminotransferase 29 IU/L (<35); Albumin 4.2 g/dL (3.5-5.0); Albumin Globulin Ratio 1.6 (1.0-2.8); Alkaline Phosphatase 74 U/L (38-126); Aspartate Aminotransferase 34 IU/L (14-36); Blood Urea Nitrogen 22 mg/dL (7-17); Carbon Dioxide 20 mmol/L (22-32); Chloride 111 mmol/L (98-107); Cholesterol 225 mg/dL (140-199); Estimated Glomerular Filt Rate 59 mL/min (>60); Globulin 2.6 g/dL (1.7-4.1); Glucose 103 mg/dL (80-110); HDL Cholesterol 77 mg/dL (40-60); HEMOLYSIS < 15 (0-50); LDL Cholesterol Calculated 125 mg/dL (<100); Sodium 141 mmol/L (137-145); Total Protein 6.8 g/dL (6.3-8.2); Triglycerides 114 mg/dL (35-150)
[2023-10-31 17:09] LABS: HIV 1 & 2 Ab/Ag 4th Gen Combo NEGATIVE (NEGATIVE); Hep C Virus Ab w/Reflex Quant NEGATIVE s/c (NEGATIVE)
== END ==
PROVIDERS: PCP Family Medicine; Referring Provider Family Medicine; Visit Provider Family Medicine
DX: E66.9 Obesity, unspecified (principal); I10 Essential (primary) hypertension; Z11.59 Encounter for screening for other viral diseases; Z11.4 Encounter for screening for human immunodeficiency virus [HIV]
CPT/HCPCS: 80053; 80061; 83036; 86803; 87389

== ENCOUNTER → 2023-12-03 12:01 | Outpatient (CLI) | payer BC, SELFPAY ==
[2023-12-03 13:02] LABS: Hematocrit 42.7 % (36-46); Hemoglobin 14.2 g/dL (12.0-16.0); Mean Corpuscular HGB Conc 33.1 % (30-36); Mean Corpuscular Hemoglobin 29.5 PG (26-34); Mean Corpuscular Volume 88.9 fL (80-100); Platelet Count 263 X10^3/uL (150-400); Red Blood Cell Count 4.81 X10^6/uL (4.0-5.2); Red Cell Distribution Width 13.3 % (11.6-14.8); White Blood Cell Count 6.4 X10^3/uL (4.5-11.0)
[2023-12-03 13:38] LABS: BUN Creatinine Ratio 16.2 (6-22); Blood Urea Nitrogen 16 mg/dL (7-17); Calcium 9.1 mg/dL (8.4-10.2); Carbon Dioxide 26 mmol/L (22-32); Chloride 107 mmol/L (98-107); Estimated Glomerular Filt Rate > 60 mL/min (>60); Glucose 86 mg/dL (80-110); HEMOLYSIS < 15 (0-50); Potassium 4.6 mmol/L (3.4-5.1); Sodium 138 mmol/L (137-145)
[2023-12-03 13:46] LABS: Creatinine Urine Random 255.89 mg/dL
[2023-12-03 13:52] LABS: Microalbumin Urine Random 1.4 mg/dL (0-1.6)
== END ==
PROVIDERS: PCP Family Medicine; Referring Provider Family Medicine; Visit Provider Family Medicine
DX: I10 Essential (primary) hypertension (principal); N28.9 Disorder of kidney and ureter, unspecified
CPT/HCPCS: 36415; 80048; 82043; 82570; 85027

== ENCOUNTER → 2024-01-15 12:49 | Outpatient (CLI) | payer BC, SELFPAY ==
--- NOTE | 2024-01-15 12:50 | DI.MRI.S_ITS ---
PROCEDURE: MR LUMBAR SPINE WO CON INDICATIONS: SPONDYLOSIS WO MYELOPATHY,LUMBAR REGION TECHNIQUE: Noncontrast sagittal T1 spin echo and T2 fast echo, sagittal STIR, and T2 fast spin echo through the lumbar spine. In cases with scoliosis, additional coronal T2 fast spin echo may be performed. COMPARISON: [facility], , MR LUMBAR SPINE WO CON, 09/07/2020, 13:51. [facility] [place], CR, XR LUMBAR SPINE 2 OR 3 VIEWS, 09/03/2023, 10:30. FINDINGS: Image quality: Diagnostic, with note made of motion artifact. Alignment and Curvature: Mild levoconvex scoliotic curvature is noted. There is minimal retrolisthesis seen at L2-L3, L3-L4, and at L4-L5. Bone Marrow: Marrow is of normal overall signal. No acute vertebral body compression fractures. Spinal Cord: Conus medullaris terminates at the L1 level. Visualized cord demonstrates normal signal and size. Paraspinous Soft Tissues: No paravertebral masses. T12-L1: No significant abnormality is seen. L1-L2: The disc height is well-preserved. Loss of disc signal is seen at this level. Mild generalized disc bulge is seen. Mild facet joint hypertrophy is seen. No neural foraminal narrowing or central canal narrowing is seen. L2-L3: Mild loss of disc height is seen. Loss of disc signal is seen. Reactive marrow endplate changes are seen, which demonstrate mixed T1 weighted and T2-weighted signal, and are attributed to a combination of edema and fatty metaplasia (Modic type I and Modic type II changes). Moderate disc bulge is seen, which is eccentric to the right. Mild facet joint hypertrophy is seen. There is moderate right-sided and no significant left-sided neural foraminal narrowing. Mild to moderate central canal narrowing is seen. L3-L4: Mild loss of disc height is seen. Loss of disc signal is seen. Reactive marrow endplate changes are seen, which demonstrate mixed T1 weighted and T2-weighted signal, and are attributed to a combination of edema and fatty metaplasia (Modic type I and Modic type II changes). Moderate disc bulge is seen, which is eccentric to the right. There is a central disc osteophyte protrusion. There is a focal annular fissure seen posteriorly. Moderate facet joint hypertrophy is seen. There is moderate right-sided and eovr-iq-cieadlur left-sided neural foraminal narrowing. Moderate central canal narrowing is seen. L4-L5: The disc height is well-preserved. Loss of disc signal is seen at this level. Mild generalized disc bulge is seen. Moderate facet joint hypertrophy is seen. There is [id number]-[id number] left-sided and mild right-sided neural foraminal narrowing. No significant central canal narrowing can be seen. L5-S1: The disc height is well-preserved. Loss of disc signal is seen at this level. Mild generalized disc bulge is seen. Mild to moderate facet hypertrophy can be seen. There is iesr-[id number] left-sided and no right-sided neural foraminal narrowing. No central canal narrowing is seen. IMPRESSION: Multiple levels of lumbar spine degenerative change can be seen, which are overall worst at the L3-L4 level. Mild levoconvex scoliotic curvature is noted. Dictated by: Brian Felder M.D. on 01/15/2024 at 13:52 Approved by: Brian Felder M.D. on 01/15/2024 at 13:56
== END ==
PROVIDERS: PCP Family Medicine; Referring Provider Physical Medicine & Rehabilitation; Visit Provider Physical Medicine & Rehabilitation
DX: M47.816 Spondylosis without myelopathy or radiculopathy, lumbar region (principal); M47.817 Spondylosis without myelopathy or radiculopathy, lumbosacral region; M41.9 Scoliosis, unspecified
CPT/HCPCS: 72148

== ENCOUNTER 2024-09-30 13:16 | Day surgery (SDC) | payer BC, SELFPAY ==
[2024-09-23 12:21] VITALS: BMI 38.0
[2024-09-30] VITALS (7 sets, daily range): BP systolic 116–143; BP diastolic 62–84; PULSE 75–107; RESP 14–25; TEMP 36.5–36.6; O2SAT 97–100; BMI 38.0
--- NOTE | 2024-09-30 | PATH_ITS ---
[facility] Accession Number: [id number] No. of containers..01 Tissue . 01 Material submitted: . back - BACK, LIPOMA . 01 Diagnosis: BACK, EXCISIONS: Fragments of mature adipose tissue, consistent with lipoma. [facility] 10/08/2024 1024 Local . 01 Electronically signed: . Quentin Sahu MD, Dermatopathologist NPI- [id number] . 01 Gross description: . BACK, LIPOMA: Received in formalin are 2 fragments of [place] soft tissue measuring 6.0 x 5.0 x 2.0 cm in aggregate. Tissue is inked. Specimen is sectioned and submitted in support representative sections in 2 cassettes. /[facility] 10/06/2024 1947 Local . 01 Pathologist provided ICD-10: D17.9 . 01 CPT . 349602 Specimen Comment: A courtesy copy of this report has been sent to [phone] Performed at: [address] [facility] [address], [place], [place] [id number] MD Tulio Nuno MD Phone: [phone]
[2024-09-30] MEDS: LACTATED RINGERS 1,000 ML 42 ML IV (14:01)
--- NOTE | 2024-09-30 14:08 | PM.PREOP ---
Pre-operative Note COVID-19 COVID-19 status: Not tested Interval Note History & Physical reviewed/Exam performed by Physician: Yes Changes to H&P: No ASA Class (for procedural sedation): III
--- NOTE | 2024-09-30 15:03 | SUR.OPER ---
Lateral on a shepard bag, head on pillow, gel axillary roll in place, bottom leg bent with gel pad under knee to foot, upper leg straight and supported with pillows. Upper arm supported by pillows and secured over bottom arm to padded arm board. Safety belt at hip, tape over blanket lower legs. Anesthesia and PA in room at time of positioning. Surgeon in room to approve final position before draping. All pressure points padded
[2024-09-30] MEDS: BUPIVACAINE 0.5% W/ EPI (PF) 30 ML VIAL INJ (15:13)
--- NOTE | 2024-09-30 15:13 | P.OP_ITS ---
Operative Date/Time/Diagnoses Date of procedure: 09/30/24 Time of procedure: 15:14 Pre-op diagnosis: Right lower back lipoma Post-op diagnosis: same Procedure & Clinicians Procedure: Excisional biopsy of right lower back lipoma Same procedure(s) as scheduled: Yes Surgeon: Ozzy Worley Adjunct Spanish Instructor: Art Mishra Anesthesia Type: General Operative Notes Findings: 5 cm x 4 cm right lower back lipoma Applied: none Estimated Blood Loss (mL): 5 Procedure in detail: The patient was brought to the operating room and general anesthesia was induced. She was positioned in left lateral decubitus position with the right side up on a shepard bag. The right lower back was prepped and draped in the usual fashion and a time-out was performed. We made a 5 cm incision over the right lower back lipoma. We dissected down through subcutaneous adipose tissue until the lipoma was encountered. The lipoma was delivered through the wound. A few fibers attachments were divided with the cautery. Additional local was injected into the deep tissue. The specimen measured approximately 5 cm x 4 cm x 4 cm. Additional local was injected into the dermis. The wound was closed in layers using multiple interrupted 3-0 Vicryl dermal sutures followed by a running 4-0 Monocryl subcuticular closure. EBL: 5 mL Specimen: Right lower back lipoma Art BLAKE provided assistance with exposure, retraction and closure of incisions. Complications: none Post-operative Condition: stable Disposition: PACU
== END 2024-09-30 16:05 | disposition home or self-care (01) ==
PROVIDERS: PCP Family Medicine; Referring Provider Surgery; Visit Provider Surgery
PROC: (CPT 21931; principal; 2024-09-30 14:45)
DX: D17.1 Benign lipomatous neoplasm of skin and subcutaneous tissue of trunk (principal); E78.5 Hyperlipidemia, unspecified; E66.01 Morbid (severe) obesity due to excess calories; Z68.37 Body mass index [BMI] 37.0-37.9, adult; Z85.820 Personal history of malignant melanoma of skin; Z86.718 Personal history of other venous thrombosis and embolism
CPT/HCPCS: 21931; J1100; J2250; J2405; J2704; J3010; J3490